=== PATIENT | female | born 1940 | race Two or more races ===

== ENCOUNTER 2023-03-15 00:16 | Inpatient (IN) | payer MEDICARE, OTHER ==
[~2023-03-15] VITALS: Ht 157.5 cm; Wt 68.0 kg
[2023-03-15 01:21] LABS: BASOPHILS # (AUTO) 0.1 K/uL (0.0-0.2); EOSINOPHILS # (AUTO) 0.4 K/uL (0.0-0.7); EOSINOPHILS % (AUTO) 7.4 % (0.0-6.0); HEMATOCRIT 41 % (33-45); HEMOGLOBIN 13.5 g/dL (11.5-14.8); LYMPHOCYTES # (AUTO) 1.7 K/uL (0.8-4.8); LYMPHOCYTES % (AUTO) 31.4 % (20.0-44.0); MEAN CORPUSCULAR HEMOGLOBIN 31 PG (26.0-33.0); MEAN CORPUSCULAR HGB CONC 33 g/dl (31.0-36.0); MEAN CORPUSCULAR VOLUME 93 fL (82-100); MONOCYTES # (AUTO) 0.7 K/uL (0.1-1.30); MONOCYTES % (AUTO) 12.9 % (2.0-12.0); NEUTROPHILS # (AUTO) 2.6 K/uL (1.8-8.9); NEUTROPHILS % (AUTO) 47.3 % (43.0-81.0); PLATELET COUNT (AUTO) 186 K/uL (150-450); RED BLOOD CELL COUNT(AUTO) 4.43 MIL/uL (4.0-5.2); RED CELL DISTRIBUTION WIDTH 14.2 % (11.5-15.0); WHITE BLOOD COUNT (AUTO) 5.5 K/uL (4.3-11.0)
[2023-03-15 01:43] LABS: CALCIUM, SERUM 8.7 mg/dL (8.5-10.1); CARBON DIOXIDE 26 mmol/L (21-32); CHLORIDE 105 mmol/L (98-107); CREATININE 0.7 mg/dL (0.6-1.3); GLUCOSE 100 mg/dL (74-106); SODIUM SERUM 140 mmol/L (136-145); UREA NITROGEN, BLOOD 18 mg/dL (7-18)
[2023-03-15 01:49] LABS: ACETAMINOPHEN < 10 ug/ml (10-30); ALANINE AMINOTRANSFERASE 24 U/L (12-78); ALBUMIN 3.3 g/dL (3.4-5.0); ALCOHOL, BLOOD < 3 mg/dL (0-10); ALKALINE PHOSPHATASE 58 U/L (46-116); ASPARTATE AMINOTRANSFERASE 16 U/L (15-37); BILIRUBIN,DIRECT 0.1 mg/dL (0.0-0.2); BILIRUBIN,TOTAL 0.5 mg/dL (0.2-1.0); SALICYLATE 0.6 mg/dL (2.8-20.0); TOTAL PROTEIN, SERUM 6.3 g/dL (6.4-8.2)
[2023-03-15] MEDS ORDERED: ASPI-1420 PO (02:49)
[2023-03-15] MEDS ORDERED: MEMA10TA PO (02:49)
[2023-03-15] MEDS ORDERED: METO25TA4 PO (02:49)
[2023-03-15] MEDS ORDERED: ATOR20TA PO (02:49)
[2023-03-15] MEDS ORDERED: DONE10TA11 PO (02:49)
[2023-03-15] MEDS ORDERED: DOCU100C36 PO (03:49)
[2023-03-15] MEDS ORDERED: FOLI0.8T3 PO (03:53)
[2023-03-15] MEDS ORDERED: MULT-754 PO (03:55)
[2023-03-15 03:56] VITALS: BP 134/54; TEMP 97.6
[2023-03-15] MEDS ORDERED: LORAZEPAM 0.5 MG TABLET PO PRN (04:00)
[2023-03-15] MEDS ORDERED: BLOOD SUGAR DIAGNOSTIC 1 EACH STRIP IN ONE (04:00)
[2023-03-15] MEDS ORDERED: ACETAMINOPHEN 325 MG TABLET PO PRN ×2 (04:00→15:30)
[2023-03-15] MEDS ORDERED: MAGNESIUM HYDROXIDE 30 ML UDC PO PRN ×2 (04:00→15:30)
[2023-03-15] MEDS ORDERED: MAG HYDROX/AL HYDROX/SIMETH 30 ML UDC PO PRN (04:00)
[2023-03-15] MEDS ORDERED: DICL100G34 TP (07:58)
[2023-03-15] MEDS ORDERED: ERGO500093 PO (07:58)
[2023-03-15] MEDS ORDERED: ACET-868 PO (07:58)
[2023-03-15] MEDS ORDERED: MULT-447 PO (07:58)
[2023-03-15] MEDS ORDERED: MAGN400O6 PO (07:58)
[2023-03-15 08:00] VITALS: BP 134/67; TEMP 97.5; O2SAT 97
[2023-03-15] MEDS ORDERED: LORAZEPAM 1 MG TABLET PO PRN (12:30)
[2023-03-15 16:00] VITALS: BP 110/92; TEMP 98; O2SAT 96
[2023-03-15] MEDS ORDERED: MEMANTINE HCL 5 MG TABLET PO SCH (17:00)
[2023-03-15] MEDS ORDERED: DICLOFENAC TOPICAL 100 GM TUBE TP SCH (17:00)
[2023-03-15] MEDS: MEMANTINE HCL 5 MG TABLET PO SCH (17:00)
[2023-03-15 21:08] VITALS: BP 116/61; TEMP 98; O2SAT 98
[2023-03-15] MEDS: DONEPEZIL 5 MG TABLET PO SCH (21:45)
[2023-03-15] MEDS: ATORVASTATIN 10 MG TABLET PO SCH (21:45)
[2023-03-15] MEDS: QUETIAPINE FUMARATE 25 MG TABLET PO SCH (21:45)
[2023-03-15] MEDS ORDERED: DONEPEZIL 5 MG TABLET PO SCH (22:00)
[2023-03-16 07:43] LABS: BASOPHILS # (AUTO) 0.1 K/uL (0.0-0.2); BASOPHILS % (AUTO) 0.7 % (0.0-2.0); EOSINOPHILS # (AUTO) 0.5 K/uL (0.0-0.7); EOSINOPHILS % (AUTO) 6.7 % (0.0-6.0); HEMATOCRIT 46 % (33-45); HEMOGLOBIN 14.9 g/dL (11.5-14.8); LYMPHOCYTES # (AUTO) 2.4 K/uL (0.8-4.8); LYMPHOCYTES % (AUTO) 32.6 % (20.0-44.0); MEAN CORPUSCULAR HEMOGLOBIN 30 PG (26.0-33.0); MEAN CORPUSCULAR HGB CONC 33 g/dl (31.0-36.0); MEAN CORPUSCULAR VOLUME 93 fL (82-100); MONOCYTES # (AUTO) 0.8 K/uL (0.1-1.30); MONOCYTES % (AUTO) 10.6 % (2.0-12.0); NEUTROPHILS # (AUTO) 3.6 K/uL (1.8-8.9); NEUTROPHILS % (AUTO) 49.4 % (43.0-81.0); PLATELET COUNT (AUTO) 229 K/uL (150-450); RED BLOOD CELL COUNT(AUTO) 4.92 MIL/uL (4.0-5.2); RED CELL DISTRIBUTION WIDTH 14.4 % (11.5-15.0); WHITE BLOOD COUNT (AUTO) 7.2 K/uL (4.3-11.0)
[2023-03-16 08:00] VITALS: BP 134/90; TEMP 97.8; O2SAT 97
[2023-03-16 08:02] LABS: CALCIUM, SERUM 8.5 mg/dL (8.5-10.1); CREATININE 0.6 mg/dL (0.6-1.3); POTASSIUM 4.1 mmol/L (3.5-5.1)
[2023-03-16] MEDS: MEMANTINE HCL 5 MG TABLET PO SCH ×2 (09:27→17:09)
[2023-03-16] MEDS: DOCUSATE SODIUM 100 MG CAPSULE PO SCH (09:37)
[2023-03-16] MEDS: METOPROLOL SUCCINATE 25 MG TAB.SR.24H PO SCH (09:37)
[2023-03-16] MEDS: ASPIRIN EC 81 MG TABLET.DR PO SCH (09:37)
[2023-03-16] MEDS: MULTIVIT W/MINERALS 1 TAB TABLET PO SCH (09:37)
[2023-03-16] MEDS: FOLIC ACID 1 MG TABLET PO SCH (09:37)
[2023-03-16 16:00] VITALS: BP 135/88; TEMP 98; O2SAT 98
[2023-03-16 20:26] VITALS: BP 129/56; TEMP 98; O2SAT 96
[2023-03-16] MEDS: DONEPEZIL 5 MG TABLET PO SCH (21:07)
[2023-03-16] MEDS: QUETIAPINE FUMARATE 25 MG TABLET PO SCH (21:08)
[2023-03-16] MEDS: ATORVASTATIN 10 MG TABLET PO SCH (21:08)
[2023-03-17 08:00] VITALS: BP 135/67; TEMP 97.7; O2SAT 99
[2023-03-17] MEDS: ASPIRIN EC 81 MG TABLET.DR PO SCH (08:15)
[2023-03-17] MEDS: MULTIVIT W/MINERALS 1 TAB TABLET PO SCH (08:16)
[2023-03-17] MEDS: FOLIC ACID 1 MG TABLET PO SCH (08:16)
[2023-03-17] MEDS: METOPROLOL SUCCINATE 25 MG TAB.SR.24H PO SCH (08:19)
[2023-03-17] MEDS: MEMANTINE HCL 5 MG TABLET PO SCH ×2 (08:20→16:54)
[2023-03-17] MEDS: DOCUSATE SODIUM 100 MG CAPSULE PO SCH (08:20)
[2023-03-17 16:00] VITALS: BP 119/61; TEMP 97.9; O2SAT 98
[2023-03-17 20:35] VITALS: BP 121/50; TEMP 98.2; O2SAT 98
[2023-03-17] MEDS: DONEPEZIL 5 MG TABLET PO SCH (21:15)
[2023-03-17] MEDS: QUETIAPINE FUMARATE 25 MG TABLET PO SCH (21:15)
[2023-03-17] MEDS: ATORVASTATIN 10 MG TABLET PO SCH (21:15)
[2023-03-17] MEDS: TEMAZEPAM 7.5 MG CAPSULE PO PRN (23:07)
[2023-03-18 08:00] VITALS: BP 107/59; TEMP 97.9; O2SAT 97
[2023-03-18] MEDS: MULTIVIT W/MINERALS 1 TAB TABLET PO SCH (08:44)
[2023-03-18] MEDS: ASPIRIN EC 81 MG TABLET.DR PO SCH (08:44)
[2023-03-18] MEDS: FOLIC ACID 1 MG TABLET PO SCH (08:44)
[2023-03-18] MEDS: DOCUSATE SODIUM 100 MG CAPSULE PO SCH (08:44)
[2023-03-18] MEDS: MEMANTINE HCL 5 MG TABLET PO SCH ×2 (08:44→17:27)
[2023-03-18] MEDS: METOPROLOL SUCCINATE 25 MG TAB.SR.24H PO SCH (08:45)
[2023-03-18 16:00] VITALS: BP 113/58; TEMP 97.9; O2SAT 96
[2023-03-18] MEDS ORDERED: LORAZEPAM 1 MG TABLET PO PRN (18:30)
[2023-03-18 20:35] VITALS: BP 111/50; TEMP 98.4; O2SAT 100
[2023-03-18] MEDS: QUETIAPINE FUMARATE 25 MG TABLET PO SCH (21:15)
[2023-03-18] MEDS: ATORVASTATIN 10 MG TABLET PO SCH (21:15)
[2023-03-18] MEDS: DONEPEZIL 5 MG TABLET PO SCH (21:15)
[2023-03-19 08:00] VITALS: BP 142/71; TEMP 98.6; O2SAT 96
[2023-03-19] MEDS: DOCUSATE SODIUM 100 MG CAPSULE PO SCH (08:29)
[2023-03-19] MEDS: FOLIC ACID 1 MG TABLET PO SCH (08:29)
[2023-03-19] MEDS: MEMANTINE HCL 5 MG TABLET PO SCH ×2 (08:29→16:06)
[2023-03-19] MEDS: MULTIVIT W/MINERALS 1 TAB TABLET PO SCH (08:29)
[2023-03-19] MEDS: ASPIRIN EC 81 MG TABLET.DR PO SCH (08:29)
[2023-03-19] MEDS: METOPROLOL SUCCINATE 25 MG TAB.SR.24H PO SCH (08:30)
[2023-03-19 16:00] VITALS: BP 136/80; TEMP 98.7; O2SAT 99
[2023-03-19 20:12] VITALS: BP 141/74; TEMP 97.9; O2SAT 100
[2023-03-19] MEDS: ATORVASTATIN 10 MG TABLET PO SCH (21:14)
[2023-03-19] MEDS: QUETIAPINE FUMARATE 25 MG TABLET PO SCH (21:14)
[2023-03-19] MEDS: DONEPEZIL 5 MG TABLET PO SCH (21:14)
[2023-03-20 08:00] VITALS: BP 121/62; TEMP 98.6; O2SAT 97
[2023-03-20] MEDS: ASPIRIN EC 81 MG TABLET.DR PO SCH (08:19)
[2023-03-20] MEDS: FOLIC ACID 1 MG TABLET PO SCH (08:19)
[2023-03-20] MEDS: MULTIVIT W/MINERALS 1 TAB TABLET PO SCH (08:19)
[2023-03-20] MEDS: MEMANTINE HCL 5 MG TABLET PO SCH ×2 (08:19→16:52)
[2023-03-20] MEDS: DOCUSATE SODIUM 100 MG CAPSULE PO SCH (08:19)
[2023-03-20] MEDS: METOPROLOL SUCCINATE 25 MG TAB.SR.24H PO SCH (08:19)
[2023-03-20 16:00] VITALS: BP 117/54; TEMP 98.6; O2SAT 95
[2023-03-20] MEDS: DONEPEZIL 5 MG TABLET PO SCH (21:30)
[2023-03-20] MEDS: ATORVASTATIN 10 MG TABLET PO SCH (21:30)
[2023-03-20] MEDS: QUETIAPINE FUMARATE 25 MG TABLET PO SCH (21:30)
[2023-03-21 08:00] VITALS: BP 100/58; TEMP 98.5; O2SAT 96
[2023-03-21] MEDS: FOLIC ACID 1 MG TABLET PO SCH (08:53)
[2023-03-21] MEDS: DOCUSATE SODIUM 100 MG CAPSULE PO SCH (08:53)
[2023-03-21] MEDS: ASPIRIN EC 81 MG TABLET.DR PO SCH (08:53)
[2023-03-21] MEDS: MULTIVIT W/MINERALS 1 TAB TABLET PO SCH (08:53)
[2023-03-21] MEDS: METOPROLOL SUCCINATE 25 MG TAB.SR.24H PO SCH (08:54)
[2023-03-21] MEDS: MEMANTINE HCL 5 MG TABLET PO SCH ×2 (08:56→16:16)
[2023-03-21 16:00] VITALS: BP 120/60; TEMP 97.6; O2SAT 98
[2023-03-21 20:14] VITALS: BP 129/68; TEMP 97.8; O2SAT 100
[2023-03-21] MEDS: ATORVASTATIN 10 MG TABLET PO SCH (21:10)
[2023-03-21] MEDS: DONEPEZIL 5 MG TABLET PO SCH (21:10)
[2023-03-21] MEDS: QUETIAPINE FUMARATE 25 MG TABLET PO SCH (21:10)
[2023-03-22 08:00] VITALS: BP 131/80; TEMP 97.6; O2SAT 98
[2023-03-22] MEDS: MULTIVIT W/MINERALS 1 TAB TABLET PO SCH (08:57)
[2023-03-22] MEDS: MEMANTINE HCL 5 MG TABLET PO SCH ×2 (08:57→17:41)
[2023-03-22] MEDS: DOCUSATE SODIUM 100 MG CAPSULE PO SCH (08:57)
[2023-03-22] MEDS: ASPIRIN EC 81 MG TABLET.DR PO SCH (08:57)
[2023-03-22] MEDS: FOLIC ACID 1 MG TABLET PO SCH (08:57)
[2023-03-22] MEDS: METOPROLOL SUCCINATE 25 MG TAB.SR.24H PO SCH (08:58)
[2023-03-22 16:00] VITALS: BP 125/60; TEMP 98; O2SAT 98
[2023-03-22] MEDS: ATORVASTATIN 10 MG TABLET PO SCH (21:18)
[2023-03-22] MEDS: QUETIAPINE FUMARATE 25 MG TABLET PO SCH (21:18)
[2023-03-22] MEDS: DONEPEZIL 5 MG TABLET PO SCH (21:18)
[2023-03-23 08:00] VITALS: BP 120/58; TEMP 98.8; O2SAT 97
[2023-03-23] MEDS: DOCUSATE SODIUM 100 MG CAPSULE PO SCH (08:34)
[2023-03-23] MEDS: FOLIC ACID 1 MG TABLET PO SCH (08:34)
[2023-03-23] MEDS: MULTIVIT W/MINERALS 1 TAB TABLET PO SCH (08:34)
[2023-03-23] MEDS: ASPIRIN EC 81 MG TABLET.DR PO SCH (08:34)
[2023-03-23] MEDS: MEMANTINE HCL 5 MG TABLET PO SCH ×2 (08:34→17:11)
[2023-03-23] MEDS: METOPROLOL SUCCINATE 25 MG TAB.SR.24H PO SCH (08:35)
[2023-03-23] MEDS: DIVALPROEX SODIUM 125 MG CAP.SPRINK PO SCH ×2 (13:38→17:11)
[2023-03-23 16:00] VITALS: BP_SYST 113; BP_SYST 120; BP_DIAS 61; BP_DIAS 72; TEMP 98.6; TEMP 98.8; O2SAT 97
[2023-03-23 20:11] VITALS: BP 122/58; TEMP 98.4; O2SAT 96
[2023-03-23] MEDS: ATORVASTATIN 10 MG TABLET PO SCH (21:09)
[2023-03-23] MEDS: DONEPEZIL 5 MG TABLET PO SCH (21:09)
[2023-03-23] MEDS: QUETIAPINE FUMARATE 25 MG TABLET PO SCH (21:09)
[2023-03-24 07:06] LABS: BASOPHILS % (AUTO) 0.8 % (0.0-2.0); EOSINOPHILS # (AUTO) 0.6 K/uL (0.0-0.7); EOSINOPHILS % (AUTO) 9.6 % (0.0-6.0); HEMATOCRIT 39 % (33-45); HEMOGLOBIN 12.9 g/dL (11.5-14.8); LYMPHOCYTES # (AUTO) 1.7 K/uL (0.8-4.8); LYMPHOCYTES % (AUTO) 29.1 % (20.0-44.0); MEAN CORPUSCULAR HEMOGLOBIN 31 PG (26.0-33.0); MEAN CORPUSCULAR HGB CONC 33 g/dl (31.0-36.0); MEAN CORPUSCULAR VOLUME 93 fL (82-100); MONOCYTES # (AUTO) 0.6 K/uL (0.1-1.30); MONOCYTES % (AUTO) 10.2 % (2.0-12.0); NEUTROPHILS % (AUTO) 50.3 % (43.0-81.0); PLATELET COUNT (AUTO) 199 K/uL (150-450); RED BLOOD CELL COUNT(AUTO) 4.19 MIL/uL (4.0-5.2); RED CELL DISTRIBUTION WIDTH 14.1 % (11.5-15.0)
[2023-03-24 07:31] LABS: ALBUMIN 3.2 g/dL (3.4-5.0); BILIRUBIN,TOTAL 0.4 mg/dL (0.2-1.0); CALCIUM, SERUM 8.9 mg/dL (8.5-10.1); CREATININE 0.7 mg/dL (0.6-1.3); POTASSIUM 3.9 mmol/L (3.5-5.1); TOTAL PROTEIN, SERUM 6.3 g/dL (6.4-8.2)
[2023-03-24 08:00] VITALS: BP 122/57; TEMP 98; O2SAT 96
[2023-03-24] MEDS: METOPROLOL SUCCINATE 25 MG TAB.SR.24H PO SCH (08:20)
[2023-03-24] MEDS: MULTIVIT W/MINERALS 1 TAB TABLET PO SCH (08:21)
[2023-03-24] MEDS: DOCUSATE SODIUM 100 MG CAPSULE PO SCH (08:21)
[2023-03-24] MEDS: MEMANTINE HCL 5 MG TABLET PO SCH ×2 (08:21→16:32)
[2023-03-24] MEDS: ASPIRIN EC 81 MG TABLET.DR PO SCH (08:21)
[2023-03-24] MEDS: FOLIC ACID 1 MG TABLET PO SCH (08:21)
[2023-03-24] MEDS: DIVALPROEX SODIUM 125 MG CAP.SPRINK PO SCH ×3 (08:21→16:32)
[2023-03-24 16:00] VITALS: BP 141/61; TEMP 98.6; O2SAT 100
[2023-03-24] MEDS: DONEPEZIL 5 MG TABLET PO SCH (21:12)
[2023-03-24] MEDS: ATORVASTATIN 10 MG TABLET PO SCH (21:12)
[2023-03-24] MEDS: TEMAZEPAM 7.5 MG CAPSULE PO PRN (21:48)
[2023-03-24] MEDS ORDERED: QUETIAPINE FUMARATE 25 MG TABLET PO SCH (22:00)
[2023-03-24 22:01] VITALS: BP 140/63; TEMP 98.8; O2SAT 100
[2023-03-25 08:00] VITALS: BP 117/71; TEMP 98.6; O2SAT 99
[2023-03-25] MEDS: FOLIC ACID 1 MG TABLET PO SCH (08:56)
[2023-03-25] MEDS: ASPIRIN EC 81 MG TABLET.DR PO SCH (08:56)
[2023-03-25] MEDS: MEMANTINE HCL 5 MG TABLET PO SCH ×2 (08:56→16:39)
[2023-03-25] MEDS: METOPROLOL SUCCINATE 25 MG TAB.SR.24H PO SCH (08:57)
[2023-03-25] MEDS: MULTIVIT W/MINERALS 1 TAB TABLET PO SCH (08:57)
[2023-03-25] MEDS: DIVALPROEX SODIUM 125 MG CAP.SPRINK PO SCH ×3 (08:57→16:39)
[2023-03-25] MEDS: DOCUSATE SODIUM 100 MG CAPSULE PO SCH (08:57)
[2023-03-25 15:42] VITALS: BP 129/71; TEMP 97.9; O2SAT 96
[2023-03-25 16:00] VITALS: BP 129/71; TEMP 97.9; O2SAT 96
[2023-03-25 20:37] VITALS: BP 120/58; TEMP 98.6; O2SAT 98
[2023-03-25 20:45] VITALS: BP 120/58; TEMP 98.6; O2SAT 98
[2023-03-25] MEDS: ATORVASTATIN 10 MG TABLET PO SCH (21:12)
[2023-03-25] MEDS: DONEPEZIL 5 MG TABLET PO SCH (21:12)
[2023-03-25] MEDS: TEMAZEPAM 7.5 MG CAPSULE PO PRN (21:59)
[2023-03-26 08:00] VITALS: BP 138/71; TEMP 97.7; O2SAT 99
[2023-03-26] MEDS: FOLIC ACID 1 MG TABLET PO SCH (08:37)
[2023-03-26] MEDS: DOCUSATE SODIUM 100 MG CAPSULE PO SCH (08:37)
[2023-03-26] MEDS: MULTIVIT W/MINERALS 1 TAB TABLET PO SCH (08:37)
[2023-03-26] MEDS: MEMANTINE HCL 5 MG TABLET PO SCH ×2 (08:37→16:08)
[2023-03-26] MEDS: ASPIRIN EC 81 MG TABLET.DR PO SCH (08:37)
[2023-03-26] MEDS: METOPROLOL SUCCINATE 25 MG TAB.SR.24H PO SCH (08:37)
[2023-03-26] MEDS: DIVALPROEX SODIUM 125 MG CAP.SPRINK PO SCH ×3 (08:37→16:07)
[2023-03-26 16:00] VITALS: BP 140/67; TEMP 97.9; O2SAT 97
[2023-03-26 20:37] VITALS: BP 124/69; TEMP 98.1; O2SAT 96
[2023-03-26] MEDS: DONEPEZIL 5 MG TABLET PO SCH (21:53)
[2023-03-26] MEDS: ATORVASTATIN 10 MG TABLET PO SCH (21:53)
[2023-03-27 06:59] LABS: BASOPHILS # (AUTO) 0.1 K/uL (0.0-0.2); EOSINOPHILS # (AUTO) 0.7 K/uL (0.0-0.7); EOSINOPHILS % (AUTO) 12.6 % (0.0-6.0); HEMATOCRIT 39 % (33-45); LYMPHOCYTES # (AUTO) 1.8 K/uL (0.8-4.8); LYMPHOCYTES % (AUTO) 30.5 % (20.0-44.0); MEAN CORPUSCULAR HEMOGLOBIN 31 PG (26.0-33.0); MEAN CORPUSCULAR HGB CONC 33 g/dl (31.0-36.0); MEAN CORPUSCULAR VOLUME 93 fL (82-100); MONOCYTES # (AUTO) 0.7 K/uL (0.1-1.30); MONOCYTES % (AUTO) 11.8 % (2.0-12.0); NEUTROPHILS # (AUTO) 2.6 K/uL (1.8-8.9); NEUTROPHILS % (AUTO) 44.1 % (43.0-81.0); PLATELET COUNT (AUTO) 196 K/uL (150-450); RED BLOOD CELL COUNT(AUTO) 4.21 MIL/uL (4.0-5.2); RED CELL DISTRIBUTION WIDTH 13.9 % (11.5-15.0); WHITE BLOOD COUNT (AUTO) 5.8 K/uL (4.3-11.0)
[2023-03-27 07:04] LABS: ALBUMIN 2.8 g/dL (3.4-5.0); BILIRUBIN,TOTAL 0.4 mg/dL (0.2-1.0); CALCIUM, SERUM 8.7 mg/dL (8.5-10.1); CREATININE 0.7 mg/dL (0.6-1.3); POTASSIUM 4.1 mmol/L (3.5-5.1); TOTAL PROTEIN, SERUM 5.9 g/dL (6.4-8.2)
[2023-03-27 08:00] VITALS: BP 140/64; TEMP 97.6; O2SAT 98
[2023-03-27] MEDS: DOCUSATE SODIUM 100 MG CAPSULE PO SCH (08:45)
[2023-03-27] MEDS: MEMANTINE HCL 5 MG TABLET PO SCH ×2 (08:45→16:40)
[2023-03-27] MEDS: MULTIVIT W/MINERALS 1 TAB TABLET PO SCH (08:45)
[2023-03-27] MEDS: METOPROLOL SUCCINATE 25 MG TAB.SR.24H PO SCH (08:45)
[2023-03-27] MEDS: ASPIRIN EC 81 MG TABLET.DR PO SCH (08:46)
[2023-03-27] MEDS: FOLIC ACID 1 MG TABLET PO SCH (08:46)
[2023-03-27] MEDS: DIVALPROEX SODIUM 125 MG CAP.SPRINK PO SCH ×3 (08:46→16:40)
[2023-03-27] MEDS ORDERED: AMOXICILLIN TRIHYDRATE 500 MG CAPSULE PO SCH (13:30)
[2023-03-27] MEDS ORDERED: AMOXICILLIN TRIHYDRATE 250 MG CAPSULE PO SCH (14:00)
[2023-03-27] MEDS: AMOXICILLIN TRIHYDRATE 250 MG CAPSULE PO SCH (15:08)
[2023-03-27 16:00] VITALS: BP 117/55; TEMP 97.8; O2SAT 97
[2023-03-27] MEDS: BACITRACIN ZINC OINT PACKET 1 EA PACKET TP SCH (16:42)
[2023-03-27] MEDS ORDERED: BACITRACIN ZINC OINT PACKET 1 EA PACKET TP SCH (17:00)
[2023-03-27 20:00] VITALS: BP 127/78; TEMP 98.1; O2SAT 95
[2023-03-27] MEDS: ATORVASTATIN 10 MG TABLET PO SCH (21:20)
[2023-03-27] MEDS: DONEPEZIL 5 MG TABLET PO SCH (21:20)
[2023-03-28] MEDS: AMOXICILLIN TRIHYDRATE 250 MG CAPSULE PO SCH (03:00)
[2023-03-28 08:00] VITALS: BP 123/64; TEMP 97.9; O2SAT 100
[2023-03-28 08:27] VITALS: BP 123/64
[2023-03-28] MEDS: DIVALPROEX SODIUM 125 MG CAP.SPRINK PO SCH ×2 (08:27→12:50)
[2023-03-28] MEDS: FOLIC ACID 1 MG TABLET PO SCH (08:27)
[2023-03-28] MEDS: METOPROLOL SUCCINATE 25 MG TAB.SR.24H PO SCH (08:27)
[2023-03-28] MEDS: ASPIRIN EC 81 MG TABLET.DR PO SCH (08:27)
[2023-03-28] MEDS: MULTIVIT W/MINERALS 1 TAB TABLET PO SCH (08:27)
[2023-03-28] MEDS: MEMANTINE HCL 5 MG TABLET PO SCH (08:27)
[2023-03-28] MEDS: DOCUSATE SODIUM 100 MG CAPSULE PO SCH (08:27)
[2023-03-28] MEDS: BACITRACIN ZINC OINT PACKET 1 EA PACKET TP SCH (09:10)
[2023-05-02] MEDS ORDERED: ERGOCALCIFEROL (VITAMIN D 2) 50,000 UNIT CAPSULE PO SCH (09:00)
== END 2023-03-28 13:30 | DRG 885 ==
LOC: ER 00:18 → GPS 02:19
PROVIDERS: ADMIT Psychiatry & Neurology Psychiatry; ATTEND Nurse Practitioner Family
PROC: 0H9MXZX Drainage of Right Foot Skin, External Approach, Diagnostic (ICD-10-PCS; principal; 2023-03-27)
DX: F31.5 Bipolar disorder, current episode depressed, severe, with psychotic features (principal); E44.1 Mild protein-calorie malnutrition; F03.93 Unspecified dementia, unspecified severity, with mood disturbance; F03.92 Unspecified dementia, unspecified severity, with psychotic disturbance; F03.918 Unspecified dementia, unspecified severity, with other behavioral disturbance; F03.94 Unspecified dementia, unspecified severity, with anxiety; F29 Unspecified psychosis not due to a substance or known physiological condition; F41.1 Generalized anxiety disorder; E88.09 Other disorders of plasma-protein metabolism, not elsewhere classified; Z73.6 Limitation of activities due to disability; F39 Unspecified mood [affective] disorder; E78.5 Hyperlipidemia, unspecified; I10 Essential (primary) hypertension; M81.0 Age-related osteoporosis without current pathological fracture; M19.90 Unspecified osteoarthritis, unspecified site; L03.031 Cellulitis of right toe; S90.421A Blister (nonthermal), right great toe, initial encounter; X58.XXXA Exposure to other specified factors, initial encounter; Y92.9 Unspecified place or not applicable
CPT/HCPCS: 36415; 70450-TC; 80048-TC; 80053-TC; 80061-TC; 80076-TC; 80164-TC; 85025-TC; 87081-TC; 97112-TC; 97116-TC; 97530-TC; C9803; G0480